=== PATIENT | female | born 1965 | race Caucasian/White ===

== ENCOUNTER 2016-09-30 16:47 | Emergency (ER) | payer OTHER ==
[2016-09-30 16:48] VITALS: BP 145/53
== END 2016-09-30 19:08 | disposition home or self-care (01) ==
LOC: ED 16:47
DX: J45.909 Unspecified asthma, uncomplicated (principal); J06.9 Acute upper respiratory infection, unspecified; I10 Essential (primary) hypertension; E11.9 Type 2 diabetes mellitus without complications; Z79.899 Other long term (current) drug therapy; Z79.84 Long term (current) use of oral hypoglycemic drugs
CPT/HCPCS: J7613

== ENCOUNTER 2017-05-25 19:05 | Emergency (ER) | payer OTHER ==
[~2017-05-25] VITALS: Ht 154.9 cm; Wt 87.3 kg
[2017-05-25 19:09] VITALS: Ht 154.9 cm; Wt 87.3 kg
[2017-05-25 20:33] VITALS: BP 132/84
== END 2017-05-25 20:34 | disposition home or self-care (01) ==
LOC: ED 19:05
DX: J45.901 Unspecified asthma with (acute) exacerbation (principal); I10 Essential (primary) hypertension; E11.9 Type 2 diabetes mellitus without complications; E03.8 Other specified hypothyroidism
CPT/HCPCS: J7512; J7620

== ENCOUNTER 2017-07-15 15:34 | Emergency (ER) | payer OTHER ==
[~2017-07-15] VITALS: Ht 154.9 cm; Wt 84.4 kg
[2017-07-15 17:53] VITALS: BP 148/75
== END 2017-07-15 17:53 | disposition home or self-care (01) ==
LOC: ED 15:34
DX: G44.209 Tension-type headache, unspecified, not intractable (principal); M62.830 Muscle spasm of back; K29.70 Gastritis, unspecified, without bleeding; J45.909 Unspecified asthma, uncomplicated; I10 Essential (primary) hypertension; E11.9 Type 2 diabetes mellitus without complications; E03.9 Hypothyroidism, unspecified
CPT/HCPCS: J2001

== ENCOUNTER 2017-08-30 18:01 | Emergency (ER) | payer OTHER ==
[~2017-08-30] VITALS: Ht 154.9 cm; Wt 83.0 kg
[2017-08-30 18:10] VITALS: Ht 154.9 cm; Wt 83.0 kg
[2017-08-30 20:06] VITALS: BP 127/90
== END 2017-08-30 20:06 | disposition home or self-care (01) ==
LOC: ED 18:01
DX: J02.9 Acute pharyngitis, unspecified (principal)
CPT/HCPCS: J7613

== ENCOUNTER 2017-12-12 03:42 | Emergency (ER) | payer OTHER ==
[2017-12-12 04:02] VITALS: Ht 154.9 cm
[2017-12-12 06:02] VITALS: BP 120/84
== END 2017-12-12 06:03 | disposition home or self-care (01) ==
LOC: ED 03:42
DX: R06.02 Shortness of breath (principal); J45.909 Unspecified asthma, uncomplicated; I10 Essential (primary) hypertension; E11.9 Type 2 diabetes mellitus without complications; E78.00 Pure hypercholesterolemia, unspecified; E03.9 Hypothyroidism, unspecified; Z90.711 Acquired absence of uterus with remaining cervical stump; Z98.890 Other specified postprocedural states
CPT/HCPCS: 85378; J7512

== ENCOUNTER 2018-01-04 11:43 | Emergency (ER) | payer SELFPAY ==
[~2018-01-04] VITALS: Ht 154.9 cm; Wt 81.4 kg
[2018-01-04 11:48] VITALS: Ht 154.9 cm; Wt 81.4 kg
[2018-01-04 14:17] VITALS: BP 134/75
== END 2018-01-04 14:17 | disposition home or self-care (01) ==
LOC: ED 11:43
DX: J45.901 Unspecified asthma with (acute) exacerbation (principal); I10 Essential (primary) hypertension; E11.9 Type 2 diabetes mellitus without complications; E03.9 Hypothyroidism, unspecified; E78.00 Pure hypercholesterolemia, unspecified; Z90.711 Acquired absence of uterus with remaining cervical stump; Z98.890 Other specified postprocedural states
CPT/HCPCS: J7512; J7613

== ENCOUNTER 2018-02-24 16:51 | Emergency (ER) | payer OTHER ==
[~2018-02-24] VITALS: Ht 154.9 cm; Wt 81.6 kg
[2018-02-24 16:58] VITALS: Ht 154.9 cm; Wt 81.6 kg
[2018-02-24 19:05] VITALS: BP 140/89
== END 2018-02-24 19:05 | disposition home or self-care (01) ==
LOC: ED 16:51
DX: G43.909 Migraine, unspecified, not intractable, without status migrainosus (principal); L56.8 Other specified acute skin changes due to ultraviolet radiation; R11.0 Nausea; J45.909 Unspecified asthma, uncomplicated; I10 Essential (primary) hypertension; E11.9 Type 2 diabetes mellitus without complications; E03.9 Hypothyroidism, unspecified; E78.00 Pure hypercholesterolemia, unspecified; Z98.890 Other specified postprocedural states; Z90.711 Acquired absence of uterus with remaining cervical stump
CPT/HCPCS: J1885; Q0163

== ENCOUNTER 2018-05-06 16:16 | Emergency (ER) | payer OTHER ==
[~2018-05-06] VITALS: Ht 154.9 cm; Wt 84.4 kg
[2018-05-06 16:38] VITALS: Ht 154.9 cm; Wt 84.4 kg
[2018-05-06 19:05] VITALS: BP 134/57
== END 2018-05-06 19:05 | disposition home or self-care (01) ==
LOC: ED 16:16
DX: J45.901 Unspecified asthma with (acute) exacerbation (principal); I10 Essential (primary) hypertension; E11.9 Type 2 diabetes mellitus without complications; E03.9 Hypothyroidism, unspecified; E78.00 Pure hypercholesterolemia, unspecified; Z98.890 Other specified postprocedural states; Z90.710 Acquired absence of both cervix and uterus
CPT/HCPCS: J7512; J7613; J7644

== ENCOUNTER 2018-05-08 11:24 | Emergency (ER) | payer OTHER ==
[~2018-05-08] VITALS: Ht 154.9 cm; Wt 84.4 kg
[2018-05-08 11:30] VITALS: Ht 154.9 cm; Wt 84.4 kg
[2018-05-08 13:52] VITALS: BP 128/86
== END 2018-05-08 13:52 | disposition home or self-care (01) ==
LOC: ED 11:24
DX: J45.901 Unspecified asthma with (acute) exacerbation (principal); I10 Essential (primary) hypertension; E03.9 Hypothyroidism, unspecified; E11.9 Type 2 diabetes mellitus without complications; E78.00 Pure hypercholesterolemia, unspecified; Z98.890 Other specified postprocedural states; Z90.710 Acquired absence of both cervix and uterus
CPT/HCPCS: J7613; J7644

== ENCOUNTER 2018-05-27 03:37 | Emergency (ER) | payer OTHER ==
[~2018-05-27] VITALS: Ht 154.9 cm; Wt 85.7 kg
[2018-05-27 03:45] VITALS: Ht 154.9 cm; Wt 85.7 kg
[2018-05-27 04:24] LABS: BASOPHIL % 0.7 % (0-2); PLATELET COUNT 327 x10^3mcL (130-400); RED CELL DISTRIBUTION WIDTH 12.4 % (11.5-14.5)
[2018-05-27 04:28] LABS: CARBON DIOXIDE 27.5 mmol/L (21-32); CHLORIDE SERUM 104 mmol/L (98-107); CREATININE SERUM 0.7 mg/dL (0.6-1.0); GFR1 > 60 mL/min; GLUCOSE SERUM 129 mg/dL (74-106); POTASSIUM SERUM 3.7 mmol/L (3.5-5.1); SODIUM SERUM 140 mmol/L (136-145)
[2018-05-27 04:32] LABS: ALBUMIN 3.8 g/dL (3.4-5.0); ALKALINE PHOSPHATASE 93 U/L (46-116); ALT/SGPT 36 U/L (14-59); AST/SGOT 26 U/L (15-37); BILIRUBIN TOTAL 0.43 mg/dL (0.20-1.00); LIPASE 219 IU/L (73-393); TOTAL PROTEIN, SERUM 7.5 g/dL (6.4-8.2)
[2018-05-27 05:48] VITALS: BP 134/65
[2018-05-27 05:54] LABS: UA SPECIFIC GRAVITY <=1.005 (1.005-1.035); microscopic required? YES; urine erythrocyte NEGATIVE (NEGATIVE)
== END 2018-05-27 05:33 | disposition home or self-care (01) ==
LOC: ED 03:37
PROVIDERS: Emergency Medicine
DX: K29.70 Gastritis, unspecified, without bleeding (principal); J45.909 Unspecified asthma, uncomplicated; I10 Essential (primary) hypertension; E11.9 Type 2 diabetes mellitus without complications; E03.9 Hypothyroidism, unspecified; E78.00 Pure hypercholesterolemia, unspecified; Z98.890 Other specified postprocedural states; Z90.711 Acquired absence of uterus with remaining cervical stump
CPT/HCPCS: J1885; J7030; Q0092

== ENCOUNTER 2018-06-29 06:10 | Emergency (ER) | payer OTHER ==
[~2018-06-29] VITALS: Ht 154.9 cm; Wt 87.1 kg
[2018-06-29 06:21] VITALS: Ht 154.9 cm; Wt 87.1 kg
[2018-06-29 07:31] VITALS: BP 108/51
== END 2018-06-29 08:53 | disposition home or self-care (01) ==
LOC: ED 06:10
DX: J45.901 Unspecified asthma with (acute) exacerbation (principal); I10 Essential (primary) hypertension; E11.9 Type 2 diabetes mellitus without complications; E78.00 Pure hypercholesterolemia, unspecified; Z90.710 Acquired absence of both cervix and uterus
CPT/HCPCS: J7613; J7644

== ENCOUNTER 2018-07-08 18:06 | Emergency (ER) | payer OTHER ==
[~2018-07-08] VITALS: Ht 154.9 cm; Wt 87.5 kg
[2018-07-08 19:20] VITALS: Ht 154.9 cm; Wt 87.5 kg
[2018-07-08 20:10] VITALS: BP 137/78
== END 2018-07-08 20:10 | disposition home or self-care (01) ==
LOC: ED 18:06
DX: J45.41 Moderate persistent asthma with (acute) exacerbation (principal); I10 Essential (primary) hypertension; E11.9 Type 2 diabetes mellitus without complications; E03.9 Hypothyroidism, unspecified; E78.00 Pure hypercholesterolemia, unspecified; Z98.890 Other specified postprocedural states; Z90.711 Acquired absence of uterus with remaining cervical stump
CPT/HCPCS: J7512; J7613; J7644

== ENCOUNTER 2018-08-24 16:48 | Emergency (ER) | payer OTHER ==
[~2018-08-24] VITALS: Ht 154.9 cm; Wt 90.7 kg
[2018-08-24 16:52] VITALS: Ht 154.9 cm; Wt 90.7 kg
[2018-08-24 19:43] VITALS: BP 111/79
== END 2018-08-24 19:43 | disposition home or self-care (01) ==
LOC: ED 16:48
DX: L03.116 Cellulitis of left lower limb (principal); L03.115 Cellulitis of right lower limb; J45.909 Unspecified asthma, uncomplicated; I10 Essential (primary) hypertension; E11.9 Type 2 diabetes mellitus without complications; E03.9 Hypothyroidism, unspecified; Z90.711 Acquired absence of uterus with remaining cervical stump; W57.XXXA Bitten or stung by nonvenomous insect and other nonvenomous arthropods, initial encounter; Y93.89 Activity, other specified; Y92.89 Other specified places as the place of occurrence of the external cause; Y99.8 Other external cause status
CPT/HCPCS: 82962